=== PATIENT | male | born 1965 | race Hispanic/Latino ===

== ENCOUNTER 2019-11-27 20:42 | Emergency (ER) | payer OTHER, SELFPAY ==
[2019-11-27] MEDS ORDERED: IBUPROFEN 400 MG TABLET ONE (21:10)
== END 2019-11-27 22:31 | disposition home or self-care (01) ==
LOC: EDH 20:42
DX: R50.9 Fever, unspecified (principal); Z20.828 Contact with and (suspected) exposure to other viral communicable diseases; R05 Cough; Z72.0 Tobacco use
CPT/HCPCS: 36415; 87635; 87804